=== PATIENT | female | born 1955 | race Caucasian/White ===

== ENCOUNTER 2023-10-06 22:33 | Inpatient (IN) | payer OTHER, SELFPAY ==
[2023-10-06] VITALS (10 sets, daily range): BP systolic 81–127; BP diastolic 47–77; PULSE 76–87; BMI 22.4
[2023-10-06] MEDS: NSS 1000 IV ×4 (13:57→23:41)
[2023-10-06] MEDS: TYLENOL 1000 MG PO (13:57)
[2023-10-06 14:10] LABS: % Basophils 0.5 % (0-2); % Eosinophils 0.1 % (0-6); % Immature Granulocytes 0.3 % (0-0.5); % Lymphocytes 10.3 % (20.5-51.1); % Monocytes 18.4 % (1.7-9.3); % Neutrophils 70.4 % (42.2-75.2); Absolute Lymphocytes 0.8 10^3/uL (1.2-3.4); Absolute Monocytes 1.4 10^3/uL (0.1-0.6); Absolute Neutrophils 5.5 10^3/uL (1.4-6.5); Hematocrit 40.8 % (37.0-47.0); Hemoglobin 14.5 g/dL (12.0-16.0); Mean Corp Hgb Conc. 35.5 g/dL (33.0-37.0); Mean Corpuscular Hgb 34.3 pg (27.0-31.0); Mean Corpuscular Volume 96.5 fL (81.0-99.0); Mean Platelet Volume 9.2 fL (7.4-10.4); Nucleated Red Blood Cells % 0 %; Platelet Count 225 10^3/uL (130-400); Red Blood Cell Count 4.23 10^6/uL (4.20-5.40); Red Cell Dist. Width 14.5 % (11.5-14.5); White Blood Cell Count 7.8 10^3/uL (4.8-10.8)
[2023-10-06 14:19] LABS: ALT (SGPT) 19 U/L (0-35); AST (SGOT) 43 U/L (14-36); Albumin 3.5 g/dl (3.5-5.0); Alkaline Phosphatase 83 U/L (38-126); Blood Urea Nitrogen 14 mg/dl (7-17); Calcium 8.9 mg/dl (8.4-10.2); Carbon Dioxide 20 mmol/L (22-30); Chloride 99 mmol/L (98-107); Glucose 115 mg/dl (70-99); Potassium 4.1 mmol/L (3.5-5.1); Sodium 128 mmol/L (135-145); Total Bilirubin 0.9 mg/dl (0.2-1.3); Total Protein 6.4 g/dl (6.3-8.2); eGFR > 60.00
--- NOTE | 2023-10-06 15:25 | ED.GENMED ---
History of Present Illness
General
Chief Complaint: Bowel Problem
Source: patient, records and spouse
Exam Limitations: none
Time Seen by Provider: 10/06/23 13:28
Nursing documentation reviewed up to this point in time: agreed with
History of Present Illness
History of Present Illness:
Patient is a 68-year-old female with a history of stem cell transplant for leukemia who presents with diarrhea for the past 2 weeks after being on Augmentin for 10 days. Patient developed with diarrhea day 5 of the Augmentin course. Patient had
fevers but no chills. Patient's having liquidy diarrhea that occurs mostly after eating but it occurs throughout the night as having 5-6 episodes a day. Patient describes as liquidy with mucus but no hematochezia or melena. Patient denies nausea
or vomiting. For the past 2 days the patient has began severe intermittent abdominal pains that seem to occur after eating and with the diarrhea. Patient has been on a probiotic as well as eating yogurt. Patient has increasing weakness. Patient
has no appetite.
Past History
Past History
ED Past Medical History: Cancer (Leukemia with stem cell transplant in 2021), GERD and Hypercholesterolemia
Social History
Tobacco: Non-smoker
Review of Systems
Review of Systems
Constitutional: Reports fever and fatigue; Denies chills
EENT: Reports no symptoms
Respiratory: Reports no symptoms
Cardiac: Reports no symptoms
ABD/GI: Reports abdominal pain, nausea, diarrhea and anorexia; Denies vomiting, bloody stools or black stools
: Reports no symptoms
Musculoskeletal: Reports no symptoms
Skin: Reports no symptoms
Neurological: Reports no symptoms
Hematologic/Lymphatic: Reports no symptoms
Phy Exam
Physical Exam
Physical Exam:
Physical Exam
General: mild to moderate distress, alert and appropriate, well nourished, dry mucous membranes
HENT: Normocephalic, supple with no lymphadenopathy, no thyromegaly
Eyes: Clear sclera, conjuctiva without injection
Heart: Regular rhythm and tachycardic rate. No S3, S4. Grade 2/6 holosystolic murmur heard at the base on the right murmur.
Lungs: No respiratory distress, no stridor, lung sounds clear and equal bilaterally
Abdomen: Soft, nontender, no organomegaly, no CVA tenderness, BS good
Neuro: Alert and oriented x 3, CN II - XII intact, no motor focality, no cerebellar dysfunction
Skin: no rash
Psychiatric: well kept. interactive and cooperative
Extremities: No edema, cyanosis, tenderness, Good and equal peripheral pulses.
Scores
Heart Failure Risk
Heart Failure Risk Score: Not Applicable
Heart Score for Chest Pain Patients
STEMI patient?: Not applicable
Withdrawal Assessment of Alcohol
Withdrawal Assessment Completed?: Not applicable
Course
Orders/Labs/Results
Orders:
Orders
10/06/23 13:46
0.9% Sodium Chloride 1000 ml [Nss] 1,000 ml IV BOLUS
Acetaminophen [Tylenol] 1,000 mg PO NOW STA
10/06/23 13:54
Complete Blood Count/With Diff Urgent
Comprehensive Metabolic Panel Urgent
Serum Osmolality Urgent
Comment: SERUM OSMALITY ADDED ON BY FLOOR 3:15PM 10-06-23
10/06/23 14:25
STOOL [C difficile Antigen & Toxins] Urgent
KG Source: Feces/Stool
Specimen Description:
Date Specimen was Collected: 10/06/23
Time Specimen was Collected: 14:23
Stool Culture Urgent
KG Source: Feces/Stool
Specimen Description:
Date Specimen was Collected: 10/06/23
Time Specimen was Collected: 14:24
Stool For WBC Urgent
KG Source: Feces/Stool
Specimen Description:
Date Specimen was Collected: 10/06/23
Time Specimen was Collected: 14:24
10/06/23 15:16
Add On- LAB Urgent
Tests Added?: serum osmality
10/06/23 15:30
Electrocardiogram (*1) Urgent
Reason for Study: Tachycardia
EKG- Treatment ONCE
10/06/23 15:56
0.9% Sodium Chloride 1000 ml [Nss] 1,000 ml IV BOLUS
10/06/23 16:06
Osmolality, Random Urine Urgent
Date Specimen was Collected: 10/06/23
Time Specimen was Collected: 16:05
Urine Sodium Urgent
Date Specimen was Collected: 10/06/23
Time Specimen was Collected: 16:05
10/06/23 18:14
0.9% Sodium Chloride 1000 ml [Nss] 1,000 ml IV BOLUS
Abnormal Lab Results
10/06/23 10/06/23
13:54 16:06
MCH 34.3 H pg
(27.0-31.0)
Absolute Lymphs (auto) 0.8 L 10^3/uL
(1.2-3.4)
Absolute Monos (auto) 1.4 H 10^3/uL
(0.1-0.6)
Lymphocytes % 10.3 L %
(20.5-51.1)
Monocytes % 18.4 H %
(1.7-9.3)
Sodium 128 L mmol/L
(135-145)
Carbon Dioxide 20 L mmol/L
(22-30)
Glucose 115 H mg/dl
(70-99)
Serum Osmolality 267 L mOsm/kg
(275-300)
AST 43 H U/L
(14-36)
Urine Sodium 9 L mmol/L
(30-90)
10/06/23 13:54
10/06/23 13:54
Vital Signs
Initial and Last Documented VS:
Initial Vital Signs
Temp Pulse Resp BP Pulse Ox
101.1 F H 129 18 112/77 96
10/06/23 12:39 10/06/23 12:39 10/06/23 12:39 10/06/23 12:39 10/06/23 12:39
Last Documented Vital Signs
Temp Pulse Resp BP Pulse Ox
99 F 91 16 90/56 92
10/06/23 14:43 10/06/23 18:15 10/06/23 18:15 10/06/23 18:12 10/06/23 18:12
*Pulse Oximetry
Patient hypoxic: no
*Critical Care Note
Total Time (30-74mins, 75-104mins- exclusive of procedures): Not Applicable
Update Note
Update Note:
Patient has volume depletion and her sodium is probably low. Patient is feeling better and resting. Patient would like to go home. Believe that is reasonable. Will have the patient use Imodium. Believe the diarrhea is antibiotic associated but
the C. difficile is negative.
ED Attending Note
-
Portions of this chart may have been created with voice recognition software.� Occasional wrong word or��sound alike� substitutions may have occurred due to the inherent limitations of voice recognition software.
Discharge Plan
Departure
Patient Disposition: Home (Routine Discharge)
Date of Disposition: 10/06/23
Time of Disposition: 18:23
Patient with high blood pressure during this ER visit?: No
Condition: Fair
Covid-19: Not Applicable
Discharge Problem:
Antibiotic-associated diarrhea, Acute hyponatremia, Dehydration with hyponatremia
Instructions: Diarrhea and Traveler's Diarrhea, Adult (DC), Dehydration, Adult ED, Hyponatremia
Referrals:
Gaetano Berrios DO [Family Provider] - Follow up in 5-7 days
Activity Restrictions/Additional Instructions:
Continue probiotics and yogurt. Make sure to stay very well-hydrated. Pedialyte may help you with your electrolytes. May use Imodium and/or Metamucil. Any further weakness, pain or fevers please return.
Interventions
Interventions:
*Risk Screen - Suicide Last Done: 10/06/23 13:30
*General Assessment Last Done: 10/06/23 13:30
*Neglect/Abuse Screening Last Done: 10/06/23 13:30
ED- Fall Risk Assessment Last Done: 10/06/23 13:30
*ED COVID-19 Vaccine History Last Done: 10/06/23 13:27
KU-[id number]-Vufvsuxwmk Assessment Last Done: 10/06/23 13:30
Discharge Date and Time
Print Language: PANAMANIAN
[2023-10-06 15:53] LABS: Osmolality Serum 267 mOsm/kg (275-300)
[2023-10-06 16:16] LABS: Osmolality Urine 363 mOsm/kg (300-900)
[2023-10-06 16:24] LABS: Urine Sodium 9 mmol/L (30-90)
--- NOTE | 2023-10-06 20:17 | EDRN ---
Pt sleeping when this RN entered room. Repeated BPs multiple times. Pt offers no complaints - pt sat up and walked into bathroom without issue - gait steady, no weakness/dizziness/pain.
--- NOTE | 2023-10-06 22:14 | HPS.HSE ---
Family Physician
-
Family Physician: Gaetano Berrios
Chief Complaint
-
Lightheadedness / Falls / Diarrhea
History of Present Illness
Patient is a 68y F with PMH significant for AML s/p bone marrow transplant (2 years ago) who presents to ED complaining of profuse diarrhea x 10-15 days, lightheadedness and multiple episodes of syncope / collapse. Patient states that she was
placed on Augmentin x 10 days on 09/17/23 due to symptoms of bronchitis. She completed the 10 days course. About 5 days in, she began to have loose / liquid stools. The diarrhea has persisted even after completion of the antibiotic regimen. She
reports about 6 episodes of loose, yellow stool per day. She has crampy abdominal pain, fecal urgency and incontinence. She has tried taking OTC Lomotil without improvement in her symptoms. She has no N/V, but has decreased PO intake as she has
appreciated increased diarrhea after eating / drinking.
Patient states that she has had nothing to eat / drink in the past 30 hours.
Patient notes that she has fallen on multiple occasions and reports lightheadedness and 'blacking out' which usually occurs with standing.
No subjective fevers or chills, though she is noted to have a fever here to 101.1.
Medical History
Past Medical History
Past Medical History: Reports Other
Additional Past Medical History:
AML
Anxiety / Depression
ASCVD / Carotid Stenosis
GERD
Past Surgical History: Reports Other
Additional Past Surgical History:
Bone Marrow Transplant (2021)
Social History
Tobacco: Non-smoker
Alcohol: Occasional
Drug: None
Family History
Family History: CAD
Allergies / Home Medications
Allergies reflects when Allergies were last updated in [facility].
Home Medications with original date entered in [facility]
Allergy/Medication List:
Allergies
Allergy/AdvReac Type Severity Reaction Status Date / Time
No Known Allergies Allergy Verified 10/06/23 20:39
Home Medications
acyclovir 800 mg tablet 800 mg PO BID 10/06/23
escitalopram oxalate 20 mg tablet 20 mg PO DAILY 10/06/23
rabeprazole 20 mg tablet,delayed release 20 mg PO DAILY 10/06/23
Review of Systems
-
History Source: Patient
A 12 point ROS was completed and negative except as noted: Yes
Constitutional: Reports Fatigue; Denies Fever or Chills
Respiratory: Denies Cough or Trouble Breathing
Cardiac: Reports Syncope; Denies Chest Pain or Palpitations
Abdomen/GI: Reports Abdominal Pain, Diarrhea and Other (Incontinence); Denies Nausea or Vomiting
: Denies Dysuria, Frequency or Flank Pain
Neurological: Reports Dizzy; Denies Headache
Psych: Denies Depression or Anxiety
Physical Exam
Vital Signs
Vital Signs
Temp Pulse Resp BP Pulse Ox
99 F 79 14 92/47 94
10/06/23 14:43 10/06/23 22:00 10/06/23 20:12 10/06/23 22:00 10/06/23 22:00
Physical Exam
General: Other (68y F in no acute distress.)
HEENT: PERRLA and Other (Dry MM)
Respiratory: Clear; No Wheezes, Rales or Rhonchi
Cardiac: S1/S2 and Regular Rhythm; No Murmur
GI: Soft, Non Tender, Non Distended and Normal Bowel Sounds
Musculoskeletal: No Clubbing, No Cyanosis and No Edema
Neuro: AO x 3
Laboratory Results
-
10/06/23 13:54
Laboratory Results
Total Bilirubin 0.9 mg/dl (0.2-1.3) 10/06/23 13:54
AST 43 U/L (14-36) H 10/06/23 13:54
ALT 19 U/L (0-35) 10/06/23 13:54
Alkaline Phosphatase 83 U/L (38-126) 10/06/23 13:54
Impression/Plan
-
A/P: Patient is a 68y F with PMH significant for AML s/p bone marrow transplant who presents to ED complaining of multiple episodes of syncope / collapse and profuse diarrhea x 10+ days.
Syncope
Orthostatic Hypotension
Hypovolemia
Hypovolemic Hyponatremia
- Admit for further evaluation and treatment.
- Aggressive IVF replacement given GI losses / ongoing diarrhea.
- Follow orthostatic signs.
- Follow for improvement in labs / lytes.
- Follow for clinical improvement / gait stability.
- Treat underlying GI process as noted below.
Antibiotic-Associated Diarrhea
- CDiff is negative here in the ED this evening.
- Remainder of stool studies are pending at present.
- Volume support as noted above.
- Follow frequency / volume of stooling for improvement.
- Probiotic supplementation.
- Trial of Imodium if stool studies are negative.
- BRAT diet as tolerate.
- Hold PPI acutely.
- Consider GI evaluation if no improvement in symptoms.
AML s/p Bone Marrow Transplant
- Stable. Followed at [place].
- Continue prophylactic acyclovir.
Anxiety / Depression
- Stable. Continue Lexapro.
DVT Prophylaxis: SCDs
Code Status: Full
[2023-10-06 22:35] LABS: Blood Urea Nitrogen 12 mg/dl (7-17); Calcium 8.1 mg/dl (8.4-10.2); Carbon Dioxide 17 mmol/L (22-30); Chloride 108 mmol/L (98-107); Glucose 104 mg/dl (70-99); Potassium 4.4 mmol/L (3.5-5.1); Sodium 132 mmol/L (135-145); eGFR > 60.00
--- NOTE | 2023-10-06 23:30 | PTCARENOTE ---
Received patient from ED. Patient AAOx3, she ambulated to the bedside with an assist of one. She denied dizziness or pain. Lungs decreased, heart rate regular, no edema, positive pulses. Hyper bowel sounds, loose stool. VSS. Sinus rhythm on the
monitor. Patient oriented to the unit. Patient verbalized an understanding to ring for transfers. Call garcia in reach.
[2023-10-07] VITALS (11 sets, daily range): BP systolic 100–133; BP diastolic 57–78; PULSE 72–83; O2SAT 95–96; BMI 22.6
[2023-10-07 06:06] LABS: Hematocrit 35.6 % (37.0-47.0); Hemoglobin 12.1 g/dL (12.0-16.0); Mean Corpuscular Hgb 34.3 pg (27.0-31.0); Mean Corpuscular Volume 100.8 fL (81.0-99.0); Mean Platelet Volume 9.9 fL (7.4-10.4); Platelet Count 182 10^3/uL (130-400); Red Blood Cell Count 3.53 10^6/uL (4.20-5.40); Red Cell Dist. Width 14.5 % (11.5-14.5); White Blood Cell Count 6.6 10^3/uL (4.8-10.8)
[2023-10-07 06:25] LABS: Blood Urea Nitrogen 10 mg/dl (7-17); Calcium 8.4 mg/dl (8.4-10.2); Carbon Dioxide 16 mmol/L (22-30); Chloride 111 mmol/L (98-107); Estimated Creatinine Clearance 90 ml/min; Glucose 74 mg/dl (70-99); Sodium 135 mmol/L (135-145); eGFR > 60.00
[2023-10-07] MEDS: NSS 1000 IV (08:15)
[2023-10-07] MEDS: ZOVIRAX 800 MG PO ×2 (08:53→20:47)
[2023-10-07] MEDS: LEXAPRO 20 MG PO (08:54)
[2023-10-07] MEDS: FLORASTOR 250 MG PO ×2 (08:54→20:47)
--- NOTE | 2023-10-07 10:56 | W.PN.HOSP.TC ---
Today's Communication/Plan
-
GI consult
change IVF to bicarb
low res diet
once tolerating solid food and diarrhea improved can d/c
Assessment / Plan
Assessment / Plan
pt is a 68 year old female
Syncope/Orthostatic Hypotension due to Hypovolemia with Hypovolemic Hyponatremia--acidotic likely due to bicarbonate losses from GI tract--change IVF to include bicarb--start questran--consult GI
Antibiotic-Associated Diarrhea---C. Diff is negative here in the ED this evening---Remainder of stool studies are pending at present--try questran
AML s/p Bone Marrow Transplant - Stable. Followed at [place] - Continue prophylactic acyclovir.
Anxiety / Depression - Stable. Continue Lexapro.
DVT Prophylaxis: SCDs
Code Status: Full
Anticipated Discharge: Within 24 hours
Subjective/Interval History
-
Date of Service: October 07, 2023
pt said diarrhea improved since she is NOT eating--
Objective Data
-
Labs:
Laboratory Results
10/07/23
05:13
WBC 6.6
Hgb 12.1
Hct 35.6 L
Plt Count 182
Sodium 135
Potassium 4.0
Chloride 111 H
Carbon Dioxide 16 L
BUN 10
Creatinine 0.6
Glucose 74
Calcium 8.4
Vital Signs:
max temp for 24 hours
10/06/23
12:39
Temp 101.1 F H
Vital Signs
Temp Pulse Resp BP Pulse Ox
97.9 F 82 18 103/57 94
10/07/23 07:18 10/07/23 07:18 10/07/23 07:18 10/07/23 07:18 10/07/23 07:18
I&O
10/06/23 10/07/23 10/08/23
06:59 06:59 06:59
Intake Total 1355 / 1355
Balance 1355 / 1355
Review of Systems
-
All other systems: Reviewed and negative
Abdomen/GI: Reports Diarrhea
Physical Exam
-
General: Well Developed, Well Nourished and No Apparent Distress
HEENT: Normocephalic and Atraumatic
Respiratory: Clear to Auscultation; Negative Wheezes or Rhonchi
Cardiac: Regular Rhythm and S1/S2; Negative Murmur
GI: Soft, Nontender, Nondistended and Normal Bowel Sounds
Musculoskeletal: No Clubbing, No Cyanosis and No Edema
Neuro: Awake and Alert
--- NOTE | 2023-10-07 10:56 | CM ---
Patient seen at bedside. Patient states that she lives wit her in a one story set up of a 2 story home. Patient has no DME and uses the [facility] in [place], with Dr. Berrios as her PCP. Patient plan is to go home with no needs. CM will
continue to follow for discharge planning needs.
Plan; home with no needs vs home with VN
[2023-10-07] MEDS: PROTONIX 40 MG PO (12:02)
[2023-10-07] MEDS: SODIUM BICARBONATE 1150 MEQ IV ×2 (12:02→23:38)
[2023-10-07] MEDS: QUESTRAN 4 GRAM PO (13:00)
--- NOTE | 2023-10-07 13:34 | CON.GI ---
Consultation
-
Date/Time Consultation Requested: 10/07/2023
Date/Time Consultation Performed: 10/07/2023
Performing Provider: Stefan Gordon
Reason for Consultation: diarrhea
Medical History
Chief Complaint / HPI
Chief Complaint: acute diarrhea
History of Present Illness:
The patient is a 68 year old female with h/o AML s/p BMT 2 years ago who p/w acute diarrhea, lightheadedness and multiple episodes of syncope. She was started on 10 day course of Augmentin few weeks ago (09/17/2023) for bronchitis, and noticed her
stool becoming increasingly loose. It became progressively worse and has been having ~6 large volume watery diarrhea associated with abdominal cramps.
Past Medical History
Past Medical History: GERD and Other
Past Surgical History: Other
Social History
Tobacco: Non-Smoker
Alcohol: Occasional
Allergies / Home Medications
Allergy/AdvReac Type Severity Reaction Status Date / Time
No Known Allergies Allergy Verified 10/06/23 20:39
�Medication �Instructions �Recorded
acyclovir 800 mg tablet 800 mg PO BID Infection 10/06/23
escitalopram oxalate 20 mg tablet 20 mg PO DAILY Depression 10/06/23
rabeprazole 20 mg tablet,delayed 20 mg PO DAILY Gastrointestinal 10/06/23
release Issue
Review of Systems
Vital Signs
Temp Pulse Resp BP Pulse Ox
98.1 F 79 16 101/64 96
10/07/23 11:15 10/07/23 11:15 10/07/23 11:15 10/07/23 11:15 10/07/23 11:15
Physical Exam
Exam
General: Well Developed and Well Nourished
HEENT: Normocephalic and Anicteric
Respiratory: Clear
Cardiac: S1/S2
GI: Soft, Non Tender, Non Distended and Normal Bowel Sounds
Results
WBC 6.6 10^3/uL (4.8-10.8) 10/07/23 05:13
Hgb 12.1 g/dL (12.0-16.0) 10/07/23 05:13
Hct 35.6 % (37.0-47.0) L 10/07/23 05:13
MCV 100.8 fL (81.0-99.0) H 10/07/23 05:13
Plt Count 182 10^3/uL (130-400) 10/07/23 05:13
Absolute Neuts (auto) 5.5 10^3/uL (1.4-6.5) 10/06/23 13:54
Sodium 135 mmol/L (135-145) 10/07/23 05:13
Potassium 4.0 mmol/L (3.5-5.1) 10/07/23 05:13
Chloride 111 mmol/L (98-107) H 10/07/23 05:13
Carbon Dioxide 16 mmol/L (22-30) L 10/07/23 05:13
BUN 10 mg/dl (7-17) 10/07/23 05:13
Creatinine 0.6 mg/dL (0.6-1.0) 10/07/23 05:13
Calcium 8.4 mg/dl (8.4-10.2) 10/07/23 05:13
Total Bilirubin 0.9 mg/dl (0.2-1.3) 10/06/23 13:54
AST 43 U/L (14-36) H 10/06/23 13:54
ALT 19 U/L (0-35) 10/06/23 13:54
Alkaline Phosphatase 83 U/L (38-126) 10/06/23 13:54
Diagnostic Image Results:
Prior GI Procedures:
EGD:
Colonoscopy:
Assessment / Plan
-
The patient is a 68 year old female with h/o AML s/p BMT 2 years ago who p/w acute diarrhea, lightheadedness and multiple episodes of syncope. She was started on 10 day course of Augmentin few weeks ago (09/17/2023) for bronchitis, and noticed her
stool becoming increasingly loose. It became progressively worse and has been having ~6 large volume watery diarrhea associated with abdominal cramps.
Impression / Rec:
1. Acute diarrhea - her acute diarrhea started about 10 to 15 days ago after starting Augmentin for bronchitis. Her diarrhea became progressively worse, and has been having about 6-7 large-volume watery diarrhea which resulted in prerenal STACEY and
hyponatremia. She was noted to have fever of 101 on admission. No leukocytosis. She reports having colonoscopy around the time of her BMT about 2 years ago and is scheduled to have a repeat colonoscopy coming up on 11/2023. Stool studies are
pending, C. difficile is negative. Will repeat C. difficile toxin as requested by her GI physician. Given her history of BMT, viral infection and GVHD are in differential, although her BMT was 2 years ago and thus seem less likely. Will plan for
EGD/colonoscopy with biopsies, follow up with stool studies.
Total Time Spent with Patient (in minutes): 55
-
-
Thank you for consultation and allowing me to participate in the patient's care. Please call the promotional marketing agent GI physician during the after hours with any questions or concerns.
[2023-10-07] MEDS: NULYTELY SOLUTION 2 LITERS PO (17:29)
[2023-10-08] VITALS (8 sets, daily range): BP systolic 19–139; BP diastolic 61–76; PULSE 73–90; BMI 22.9
[2023-10-08 06:55] LABS: Hematocrit 38.4 % (37.0-47.0); Hemoglobin 13.1 g/dL (12.0-16.0); Mean Corp Hgb Conc. 34.1 g/dL (33.0-37.0); Mean Corpuscular Hgb 34.1 pg (27.0-31.0); Mean Platelet Volume 9.5 fL (7.4-10.4); Platelet Count 185 10^3/uL (130-400); Red Blood Cell Count 3.84 10^6/uL (4.20-5.40); Red Cell Dist. Width 14.1 % (11.5-14.5); White Blood Cell Count 7.6 10^3/uL (4.8-10.8)
[2023-10-08 07:13] LABS: Blood Urea Nitrogen 5 mg/dl (7-17); Calcium 8.5 mg/dl (8.4-10.2); Carbon Dioxide 29 mmol/L (22-30); Chloride 103 mmol/L (98-107); Estimated Creatinine Clearance 90 ml/min; Glucose 84 mg/dl (70-99); Magnesium 1.5 mg/dl (1.6-2.3); Potassium 3.5 mmol/L (3.5-5.1); Sodium 135 mmol/L (135-145); eGFR > 60.00
[2023-10-08] MEDS: ZOVIRAX 800 MG PO (10:59)
[2023-10-08] MEDS: PROTONIX 40 MG PO (11:00)
[2023-10-08] MEDS: LEXAPRO 20 MG PO (11:00)
[2023-10-08] MEDS: FLORASTOR 250 MG PO (11:00)
[2023-10-08] MEDS: MAGNESIUM SULFATE 108 GRAMS IV (11:04)
[2023-10-08] MEDS: SODIUM BICARBONATE IV (11:36)
[2023-10-08] MEDS: QUESTRAN 4 GRAM PO (12:50)
--- NOTE | 2023-10-08 16:14 | CM ---
Reviewed the chart notes and spoke with the patient at the bedside. IMM signed and placed on the chart. Patient expects to discharge to home today with no needs. CM continues to be available to patient/family and is monitoring medical plan for
needs at discharge.
Plan: Discharge to home when medically stable. Patient's spouse will provide transportation.
--- NOTE | 2023-10-09 06:14 | W.PN.HOSP.TC ---
Addendum entered and electronically signed by Aditi Bernal MD 10/09/23 06:54:
This is a late entry. Patient was actually seen on October 08, 2023. I saw and evaluated the patient independently. I reviewed the resident�s note and agree with findings and plan as documented by Dr. Ricardo.
GENERAL: well developed, well nourished, female in no apparent distress
HEENT: NC/AT
HEART: regular rate and rhythm, +S1, +S2
LUNGS : clear to auscultation bilaterally
ABDOM: soft, nontender, nondistended, + bowel sounds
EXT: no cyanosis, clubbing, or edema
NEUROLOGIC: grossly intact
Syncope/Orthostatic Hypotension due to Hypovolemia with Hypovolemic Hyponatremia--acidotic likely due to bicarbonate losses from GI tract--all resolved--pt s/p EGD and colonoscopy, nothing much found (few polyps biopsied, few areas biopsied in colon
looking for microscopic colitis)--tolerating diet and cleared for d/c
Antibiotic-Associated Diarrhea---C. Diff is negative here in the ED this evening---Remainder of stool studies are negative
AML s/p Bone Marrow Transplant - Stable. Followed at [place] - Continue prophylactic acyclovir.
Anxiety / Depression - Stable. Continue Lexapro.
DVT Prophylaxis: SCDs
Code Status: Full
Original Note:
Today's Communication/Plan
-
Patient is stable and is to be discharged. EGD and colonoscopy--Pending biopsy results
Assessment / Plan
Assessment / Plan
pt is a 68 year old female
Syncope/Orthostatic Hypotension due to Hypovolemia with Hypovolemic Hyponatremia--acidotic likely due to bicarbonate losses from GI tract--changed IVF to include bicarb--started questran--apprec GI consult-Colonoscopy internal hemorrhoids and
colitis--EGD normal--colon and gastric/duodenal biopsies taken--Patient start regular diet.
Antibiotic-Associated Diarrhea---C. Diff is negative--- stool and blood culture negative
AML s/p Bone Marrow Transplant - Stable. Followed at [place] - Continue prophylactic acyclovir.
Anxiety / Depression - Stable. Continue Lexapro.
DVT Prophylaxis: SCDs
Code Status: Full
Anticipated Discharge: Today
Subjective/Interval History
-
Date of Service: October 09, 2023
Patient reports improvement in frequency of diarrhea. No other c/o.
Objective Data
-
Vital Signs:
Vital Signs
Temp Pulse Resp BP Pulse Ox
97.4 F 74 16 107/64 94
10/08/23 15:05 10/08/23 15:05 10/08/23 15:05 10/08/23 15:05 10/08/23 15:05
I&O
10/07/23 10/08/23 10/09/23
06:59 06:59 06:59
Intake Total 1355 / 1355 2970 / 2970 200 / 200
Balance 1355 / 1355 2970 / 2970 200 / 200
--- NOTE | 2023-10-09 15:09 | W.DCSUMMARY ---
Addendum entered and electronically signed by Aditi Bernal MD 10/09/23 16:42:
Read, reviewed, and agree. See same day progress note for additional details. Time spent coordinating care, DC planning, review of DC plan of care with resident, transition of care, review of records in EMR, med rec, consults, notes, d/w
consultants, nursing, family, and CM = 45 minutes.
Original Note:
Discharge Summary
Discharge Data
Date of Admission: 10/06/23
Date of Discharge: 10/09/23
Total time spent discharging patient (in min): 45
-
Pending Results: Yes
Additional Pending Results:
Colon biopsy--pending
Gastric/Dudoneal--pending
Hospital Course
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 She presented to the emergency department with lightheadedness, multiple episodes of syncope/falling, crampy abdominal pain and profuse diarrhea
(x 10/daily) for the last 2 weeks prior to admission. On 09/17/23, patient was placed on Augmentin for bronchitis and completed the 10-day course. Diarrhea started 5 days after initiation of Augmentin and persisted after completion of the course.
[id number] medication with Lomotil had failed to improve symptoms. Did not complain of nausea,vomiting, bloody stools or fever/chills. Patient reported decreased oral intake. physical examination was unremarkable. Patient was admitted.
Problem #1: Diarrhea, Hypovolemia, Hypovolemic Hyponatremia, associated syncope/Orthostatic Hypotension : Questran was started at a dose of 4g/daily IVF was changed to include bicarbonates which resolved the acidosis. prophylactic acyclovir was
continued. GI service was consulted for further evaluation. Symptoms most likely consistent with with antibiotic associated diarrhea although GVHD and viral infection should be included in the differential. colonoscopy suggested internal
hemorrhoids and colitis and biopsies from the colon were taken. EGD revealed multiple gastric polyps otherwise normal. Gastric/duodenal biopsies were taken. Blood and stool cultures showed no growth in 48 hours. Stool was negative for C. difficile
Antigen and toxin A&B.Stool leukocyte was positive. Patient started tolerating fluid and was cleared by GI service for discharge.
Patient is stable for discharge to home. There are any questions regarding this dictation or hospital stay please call office ([phone]).
Discharge Plan
-
Patient Disposition: Home (Routine Discharge)
Discharge Diagnosis/Procedures: Syncope orthostatic hypotension due to hyponatremic hypovolemia, antibiotic associated diarrhea, AML s/p bone marrow transplant
Condition: Good
Diet: Regular
Activity: As tolerated
Driving Restrictions: As prior to admission
Bathing Restrictions: OK to Shower
Referrals:
Gaetano Berrios, [Family Provider] -
Additional Discharge Medication Instructions: Saccharomyces Boulardi is a probiotic; you can use any probiotic of your choice [id number]
Prescriptions:
New
Saccharomyces boulardii 250 mg Capsule
250 mg PO BID Qty: 0 0RF
Continued
rabeprazole 20 mg Tablet,Delayed Release (Dr/Ec)
20 mg PO DAILY
acyclovir 800 mg Tablet
800 mg PO BID
escitalopram oxalate 20 mg Tablet
20 mg PO DAILY
Discharge Orders:
Discharge Patient (As Directed); Ordered 10/08/23
Ordered By: Hua Ricardo
Discharge Date and Time
Discharge Date/Time: 10/08/23 17:34
Print Language: DANISH
== END 2023-10-08 17:34 | disposition home or self-care (01) | DRG 312 ==
LOC: 2 NORTH 22:33
PROVIDERS: ADMITTING PHYSICIAN Hospitalist; ATTENDING PHYSICIAN Internal Medicine; CONSULT PHYSICIAN Internal Medicine Gastroenterology; EMERGENCY PHYSICIAN Emergency Medicine; FAMILY PHYSICIAN Family Medicine
PROC: 0DBP8ZX Excision of Rectum, Via Natural or Artificial Opening Endoscopic, Diagnostic (ICD-10-PCS; 2023-10-08)
PROC: 0DBN8ZX Excision of Sigmoid Colon, Via Natural or Artificial Opening Endoscopic, Diagnostic (ICD-10-PCS; 2023-10-08)
PROC: 0DB98ZX Excision of Duodenum, Via Natural or Artificial Opening Endoscopic, Diagnostic (ICD-10-PCS; 2023-10-08)
PROC: 0DBF8ZX Excision of Right Large Intestine, Via Natural or Artificial Opening Endoscopic, Diagnostic (ICD-10-PCS; 2023-10-08)
PROC: 0DB68ZX Excision of Stomach, Via Natural or Artificial Opening Endoscopic, Diagnostic (ICD-10-PCS; 2023-10-08)
PROC: 0DBG8ZX Excision of Left Large Intestine, Via Natural or Artificial Opening Endoscopic, Diagnostic (ICD-10-PCS; 2023-10-08)
DX: I95.1 Orthostatic hypotension (principal); E87.1 Hypo-osmolality and hyponatremia; K52.1 Toxic gastroenteritis and colitis; C92.00 Acute myeloblastic leukemia, not having achieved remission; Z94.81 Bone marrow transplant status; F32.A Depression, unspecified; I65.29 Occlusion and stenosis of unspecified carotid artery; E86.1 Hypovolemia; T36.0X5A Adverse effect of penicillins, initial encounter; T36.1X5A Adverse effect of cephalosporins and other beta-lactam antibiotics, initial encounter; F41.9 Anxiety disorder, unspecified; I25.10 Atherosclerotic heart disease of native coronary artery without angina pectoris; K21.9 Gastro-esophageal reflux disease without esophagitis; K64.0 First degree hemorrhoids; K63.89 Other specified diseases of intestine; K31.7 Polyp of stomach and duodenum; Z79.899 Other long term (current) drug therapy
CPT/HCPCS: 88305; 80048; 80053; 83735; 83930; 83935; 84300; 85025; 85027; 87040; 87045; 87046; 87324; 87427; 87449; 89055; 93005; 96360; 96361; 97161; 97165; 99285